=== PATIENT | female | born 1960 | race Caucasian/White ===

== ENCOUNTER 2017-07-10 09:33 | Outpatient (CLI) | payer OTHER | END 2017-07-10 09:34 | disposition home or self-care (01) | LOC: MAMMO 09:33 | PROVIDERS: ATTEND Physician Assistant | DX: Z53.9 Procedure and treatment not carried out, unspecified reason (principal) ==

== ENCOUNTER 2017-08-01 08:20 | Outpatient (CLI) | payer OTHER | END 2017-08-01 08:21 | disposition home or self-care (01) | LOC: BICMAMMO 08:20 | PROVIDERS: ATTEND Physician Assistant | DX: Z12.31 Encounter for screening mammogram for malignant neoplasm of breast (principal) | CPT/HCPCS: 77063; 77067; G0202 ==

== ENCOUNTER 2017-08-22 08:00 | Outpatient (CLI) | payer OTHER | END 2017-08-22 08:01 | disposition home or self-care (01) | LOC: BICMAMMO 08:00 | PROVIDERS: ATTEND Physician Assistant | DX: N63.0 Unspecified lump in unspecified breast (principal) | CPT/HCPCS: G0206-RT; G0279 ==